=== PATIENT | female | born 1945 | race Caucasian/White ===

== ENCOUNTER → 2023-09-18 15:59 | Outpatient (REF) | payer MEDICARE, OTHER, SELFPAY | LOC: HWWDC 15:59 | PROVIDERS: ATTENDING PHYSICIAN Obstetrics & Gynecology; FAMILY PHYSICIAN Family Medicine | DX: Z12.31 Encounter for screening mammogram for malignant neoplasm of breast (principal) | CPT/HCPCS: 77063; 77067 ==

== ENCOUNTER 2024-05-12 14:00 | Emergency (ER) | payer MEDICARE, OTHER, SELFPAY ==
[2024-05-12 14:02] VITALS: BP 152/76
[2024-05-12 14:06] VITALS: BP 152/76
--- NOTE | 2024-05-12 14:37 | ED.GENMED ---
History of Present Illness
<Lolis Echavarria PA-C - Last Filed: 05/13/24 11:00>
General
Chief Complaint: Abdominal Pain
Source: patient
Exam Limitations: none
Time Seen by Provider: 05/12/24 14:36
Nursing documentation reviewed up to this point in time: agreed with
History of Present Illness
History of Present Illness:
79-year-old female with past medical history of hypertension, hyperlipidemia, diverticulosis, GERD presents to the emergency department today with persistent left lower quadrant pain. Patient notes she follows with [facility].
Patient states that she was having this pain and was seen in an ER and diagnosed with diverticulitis and started on amoxicillin. Patient states that for the pain she is also been taking Vicodin. Patient notes that she finished a course of
amoxicillin and states that her pain has not gotten better. Patient also feels that she is constipated, she has not had a bowel movement in 4 days. Her normal bowel movement pattern is every 2 to 3 days. She denies fevers or chills, nausea or
vomiting. She denies chest pain or shortness of breath. She denies blood in her urine, acute urine retention, dysuria. Patient called her gastroenterology office to advise her to report to the emergency department for repeat CAT scan.
Past History
<Lolis Echavarria PA-C - Last Filed: 05/13/24 11:00>
Past History
ED Past Medical History: GERD, Psychiatric (Anxiety), Other (Constipation) and Other (Gout, osteoarthritis)
ED Past Surgical History: Gynecological and Orthopedic (Right hip)
Social History
Tobacco: Non-smoker
Living: with family
Review of Systems
<Lolis Echavarria PA-C - Last Filed: 05/13/24 11:00>
Review of Systems
All Other Systems: ROS reviewed and negative except as documented in HPI and ROS
Phy Exam
<Lolis Echavarria PA-C - Last Filed: 05/13/24 11:00>
Physical Exam
Physical Exam:
General: Patient is well appearing and in no acute distress; non-toxic
Skin: Warm and dry, no rashes or lesions
Head: Normocephalic, atraumatic
Eyes: Sclera non-icteric. EOMs intact. PERRLA.
Cardiac: Regular rate and rhythm, no murmrus
Peripheral Vascular: No lower extremity swelling or edema
Pulm: Normal respiratory effort
Abdomen: LLQ abdominal tenderness to palpation, no palpable abdominal masses, no rebound tenderness
Neuro: CN II-XII intact, no focal neurologic deficits.
Psychiatric: Appropriate mood and affect.
Course
<Lolis Echavarria PA-C - Last Filed: 05/13/24 11:00>
Orders/Labs/Results
Orders:
Orders
05/12/24 14:43
IV Insert/Care/Rem.- Treatment PRN
05/12/24 14:51
Complete Blood Count/With Diff Urgent
Comprehensive Metabolic Panel Urgent
Lipase Urgent
05/12/24 14:57
CT Abd/pel (oral only)-[facility] Only Urgent
Reason For Exam: LLQ pain
05/12/24 15:11
Ketorolac [Toradol] 15 mg IV NOW STA
05/12/24 16:34
Iohexol [Omnipaque] See Protocol PO NOW STA
05/12/24 17:09
Hydrocodone 5/APAP 325 [[place] 5/325] 1 tablet PO NOW STA
05/12/24 17:17
Urinalysis Reflex To Culture Urgent
Date Specimen was Collected: 05/12/24
Time Specimen was Collected: 17:16
Abnormal Lab Results
05/12/24
14:51
RBC 3.95 L 10^6/uL
(4.20-5.40)
MCH 31.6 H pg
(27.0-31.0)
BUN 19 H mg/dl
(7-17)
Creatinine 1.6 H mg/dL
(0.6-1.0)
Glucose 103 H mg/dl
(70-99)
05/12/24 14:51
05/12/24 14:51
Vital Signs
Initial and Last Documented VS:
Initial Vital Signs
Temp Pulse Resp BP Pulse Ox
97.9 F 67 18 152/76 100
05/12/24 14:02 05/12/24 14:02 05/12/24 14:02 05/12/24 14:02 05/12/24 14:02
Last Documented Vital Signs
Temp Pulse Resp BP Pulse Ox
97.9 F 67 18 162/80 96
05/12/24 14:06 05/12/24 14:06 05/12/24 14:06 05/12/24 20:00 05/12/24 20:15
<Gurmeet Palomares MD - Last Filed: 05/12/24 20:24>
Orders/Labs/Results
Orders:
Orders
05/12/24 14:43
IV Insert/Care/Rem.- Treatment PRN
05/12/24 14:51
Complete Blood Count/With Diff Urgent
Comprehensive Metabolic Panel Urgent
Lipase Urgent
05/12/24 14:57
CT Abd/pel (oral only)-[facility] Only Urgent
Reason For Exam: LLQ pain
05/12/24 15:11
Ketorolac [Toradol] 15 mg IV NOW STA
05/12/24 16:34
Iohexol [Omnipaque] See Protocol PO NOW STA
05/12/24 17:09
Hydrocodone 5/APAP 325 [[place] 5/325] 1 tablet PO NOW STA
05/12/24 17:17
Urinalysis Reflex To Culture Urgent
Date Specimen was Collected: 05/12/24
Time Specimen was Collected: 17:16
Abnormal Lab Results
05/12/24
14:51
RBC 3.95 L 10^6/uL
(4.20-5.40)
MCH 31.6 H pg
(27.0-31.0)
BUN 19 H mg/dl
(7-17)
Creatinine 1.6 H mg/dL
(0.6-1.0)
Glucose 103 H mg/dl
(70-99)
05/12/24 14:51
05/12/24 14:51
Vital Signs
Initial and Last Documented VS:
Initial Vital Signs
Temp Pulse Resp BP Pulse Ox
97.9 F 67 18 152/76 100
05/12/24 14:02 05/12/24 14:02 05/12/24 14:02 05/12/24 14:02 05/12/24 14:02
Last Documented Vital Signs
Temp Pulse Resp BP Pulse Ox
97.9 F 67 18 162/80 96
05/12/24 14:06 05/12/24 14:06 05/12/24 14:06 05/12/24 20:00 05/12/24 20:15
Yarelylt;Lolis Echavarria PA-C - Last Filed: 05/13/24 11:00>
MDM/Problems Addressed
Differential Diagnosis Includes:
ddx include diverticulitis, gastroenteritis, intraabdominal abscess, perforated viscus, bowl obstruction
MDM/Problems Addressed:
79-year-old female past medical history diverticulitis presents emergency department for left lower quadrant pain. She was diagnosed with this recently was started on amoxicillin has not been getting better. She denies any nausea or vomiting,
fevers or chills. Gastroenterology sent her to emergency department for further evaluation repeat CAT scan. Labs sent off. CAT scan ordered.
Chronic conditions affecting care:
htn, hlp, anxiety, diverticulitis, GERD
<Lolis Echavarria PA-C - Last Filed: 05/13/24 11:00>
*Pulse Oximetry
Patient hypoxic: no
*Critical Care Note
Total Time (30-74mins, 75-104mins- exclusive of procedures): Not Applicable
Data Reviewed
Review of Other/Old Records Reveals: Records (Reviewed previous ER physician documentation, 08/10/2022) and Discharge Summary (Reviewed discharge summary from 04/09/2018, patient seen for right hip arthroplasty)
Source: patient and records
<Gurmeet Palomares MD - Last Filed: 05/12/24 20:24>
*Radiology
Radiology exam reviewed: radiology read reviewed (No acute findings)
<Lolis Echavarria PA-C - Last Filed: 05/13/24 11:00>
Update Note
Update Note:
6:55 pm-- Patient still drinking oral contrast. Will sign out to my attending Dr. Palomares
<Gurmeet Palomares MD - Last Filed: 05/12/24 20:24>
Update Note
Update Note:
6:55 pm-- Patient still drinking oral contrast. Will sign out to my attending Dr. Palomares
2020... CT scan unremarkable. Patient clinically has remained nontoxic. Nonsurgical abdomen. Normal labs. Highly doubt ischemic issue. Discussed admission versus outpatient follow-up. No real indication for admission however I have course
would not want to send the patient home if she was in too much discomfort to go home. She states she is comfortable to go home we will stick to a light diet and follow-up with her primary.
ED Attending Note
<Lolis Echavarria PA-C - Last Filed: 05/13/24 11:00>
-
Portions of this chart may have been created with voice recognition software.� Occasional wrong word or��sound alike� substitutions may have occurred due to the inherent limitations of voice recognition software.
<Gurmeet Palomares MD - Last Filed: 05/12/24 20:24>
ED Attending Note
Patient seen and examined by attending physician: Yes
I performed the substantive portion of visit, reviewed & personally made and approve the management plan that is documented in note by myself or ARAM.: Yes
ED Attending Note:
79-year-old female complaining of ongoing left lower quadrant pain. Finished a course of Augmentin x 2 weeks for diverticulitis. Diagnosed in [place]. Pain has persisted. No vomiting or fever.
On exam patient is nontoxic in no distress. Mild tenderness left lower quadrant. No rebound or guarding no mass or hernia. Warm and dry. Perfusing well. Lungs clear and equal. Heart regular rate and rhythm.
Impression is persistent and ongoing left lower quadrant pain with a history of diverticulitis. CT pending. Did elect to hold on IV dye with a borderline GFR. Very low suspicion for any vascular emergency. Further care will depend on CT findings
Discharge Plan
Departure
Patient Disposition: Home (Routine Discharge)
Date of Disposition: 05/12/24
Time of Disposition: 20:23
Patient with high blood pressure during this ER visit?: Yes
Discharge Problem:
Lower abdominal pain, History of diverticulitis, Chronic renal insufficiency
Instructions: Abdominal Pain, BLOOD PRESSURE
Prescriptions:
No Action
omeprazole 20 MG capsule,delayed release(DR/EC)
20 mg PO DAILY
Patient Comments:
pt took two today
alprazolam 0.25 MG tablet
0.25 mg PO HS
citalopram 20 MG tablet
40 mg PO HS
docusate sodium [Stool Softener] 100 MG capsule
200 mg PO HS PRN (Reason: constipation)
fluticasone propionate 1 SPRAY spray,suspension
1 spray intranasal BID
atorvastatin 10 MG tablet
20 mg PO HS
Maalox:
30 ml PO PRN PRN (Reason: upset stomach)
Patient Comments:
'two swigs'
mometasone [Nasonex] 17 GM spray,non-aerosol
1 spray intranasal BID
ciprofloxacin HCl [Cipro] 500 mg tablet
500 mg PO BID Qty: 20 0RF
metronidazole 500 mg tablet
500 mg PO TID Qty: 30 0RF
Referrals:
Barron Ponce MD [Family Provider] - Follow up in 2-3 days
Activity Restrictions/Additional Instructions:
Light diet for the next few days
Close follow-up with your primary physician
Return sooner with increased pain fever vomiting or any other concerning symptoms
Interventions
Interventions:
*Risk Screen - Suicide Last Done: 05/12/24 14:06
*General Assessment Last Done: 05/12/24 14:41
*Neglect/Abuse Screening Last Done: 05/12/24 14:06
ED- Fall Risk Assessment Last Done: 05/12/24 20:39
*ED COVID-19 Vaccine History Last Done: 05/12/24 14:10
*Nursing Disposition Last Done: 05/12/24 20:39
HX-Mpxtdl-Cjhbzteysp Assessment Last Done: 05/12/24 14:42
Discharge Date and Time
Discharge Date/Time: 05/12/24 20:39
Print Language: ITALIAN
[2024-05-12 14:41] VITALS: BMI 27.6
[2024-05-12 15:04] VITALS: BP 154/74
[2024-05-12 15:08] LABS: % Basophils 0.5 % (0-2); % Eosinophils 2.2 % (0-6); % Immature Granulocytes 0.5 % (0-0.5); % Lymphocytes 23.2 % (20.5-51.1); % Monocytes 9.2 % (1.7-9.3); % Neutrophils 64.4 % (42.2-75.2); Absolute Eosinophils 0.1 10^3/uL (0-0.7); Absolute Lymphocytes 1.5 10^3/uL (1.2-3.4); Absolute Monocytes 0.6 10^3/uL (0.1-0.6); Absolute Neutrophils 4.1 10^3/uL (1.4-6.5); Hematocrit 37.5 % (37.0-47.0); Hemoglobin 12.5 g/dL (12.0-16.0); Mean Corp Hgb Conc. 33.3 g/dL (33.0-37.0); Mean Corpuscular Hgb 31.6 pg (27.0-31.0); Mean Corpuscular Volume 94.9 fL (81.0-99.0); Mean Platelet Volume 10.4 fL (7.4-10.4); Nucleated Red Blood Cells % 0 %; Platelet Count 301 10^3/uL (130-400); Red Blood Cell Count 3.95 10^6/uL (4.20-5.40); White Blood Cell Count 6.4 10^3/uL (4.8-10.8)
[2024-05-12 15:18] LABS: ALT (SGPT) 17 U/L (0-35); AST (SGOT) 23 U/L (14-36); Albumin 4.1 g/dl (3.5-5.0); Alkaline Phosphatase 92 U/L (38-126); Blood Urea Nitrogen 19 mg/dl (7-17); Calcium 9.3 mg/dl (8.4-10.2); Carbon Dioxide 24 mmol/L (22-30); Chloride 104 mmol/L (98-107); Estimated Creatinine Clearance 30 ml/min; Glucose 103 mg/dl (70-99); Lipase 224 U/L (23-300); Potassium 4.4 mmol/L (3.5-5.1); Sodium 137 mmol/L (135-145); Total Bilirubin 0.3 mg/dl (0.2-1.3); Total Protein 6.9 g/dl (6.3-8.2); eGFR 33.01
[2024-05-12] MEDS: TORADOL 15 MG IV (15:46)
[2024-05-12] MEDS: OMNIPAQUE 50 ML PO (16:47)
[2024-05-12] MEDS: NORCO 5/325 1 TABLET PO (17:15)
[2024-05-12 17:16] VITALS: BP 182/86
[2024-05-12 17:35] LABS: Urine Albumin Negative (Neg - Trace); Urine Bilirubin Negative (Negative); Urine Character Clear (Clear); Urine Color Yellow; Urine Glucose Negative (Negative); Urine Ketone Negative (Negative); Urine Leukocyte Negative (Negative); Urine Nitrite Negative (Negative); Urine Occult Blood Negative (Negative); Urine Specific Gravity 1.015 (<1.030); Urine Urobilinogen Negative (Neg - 1+)
[2024-05-12 19:40] VITALS: BP 158/80
[2024-05-12 20:00] VITALS: BP 162/80
== END 2024-05-12 20:39 | disposition home or self-care (01) ==
LOC: EMR 14:00
PROVIDERS: Physician Assistant; EMERGENCY PHYSICIAN Emergency Medicine; FAMILY PHYSICIAN Family Medicine
DX: R10.32 Left lower quadrant pain (principal); I12.9 Hypertensive chronic kidney disease with stage 1 through stage 4 chronic kidney disease, or unspecified chronic kidney disease; N18.9 Chronic kidney disease, unspecified; E78.00 Pure hypercholesterolemia, unspecified; K21.9 Gastro-esophageal reflux disease without esophagitis; F41.9 Anxiety disorder, unspecified
CPT/HCPCS: 99284; 96374; 74176; 80053; 81003; 83690; 85025

== ENCOUNTER → 2024-11-02 10:42 | Outpatient (REF) | payer MEDICARE, OTHER, SELFPAY | LOC: HWRAD 10:42 | PROVIDERS: ATTENDING PHYSICIAN Internal Medicine Rheumatology; FAMILY PHYSICIAN Family Medicine | DX: M19.042 Primary osteoarthritis, left hand (principal); M19.90 Unspecified osteoarthritis, unspecified site | CPT/HCPCS: 73130 ==

== ENCOUNTER → 2025-01-19 12:54 | Outpatient (REF) | payer MEDICARE, OTHER, SELFPAY | LOC: HWWDC 12:54 | PROVIDERS: ATTENDING PHYSICIAN Nurse Practitioner Family; FAMILY PHYSICIAN Family Medicine; REFERRING PHYSICIAN Obstetrics & Gynecology | DX: Z12.31 Encounter for screening mammogram for malignant neoplasm of breast (principal) | CPT/HCPCS: 77063; 77067 ==